=== PATIENT | female | born 1980 | race Hispanic/Latino ===

== ENCOUNTER 2018-08-04 06:41 | Outpatient (CLI) | payer BC ==
--- NOTE | 2018-08-04 08:33 | ULT ---
ULTRASOUND ABDOMEN COMPLETE HISTORY: Epigastric pain. TECHNIQUE: Payne-scale ultrasound evaluation of the liver, gallbladder, spleen, pancreas, common bile duct, kidne ys, abdominal aorta, and inferior vena cava (IVC). FINDINGS: No focal hepatic lesion or acute gallbladder pathology. The imaged spleen and kidneys are unremarkab le. Lo's sign is reported as negative. No ascites. The retroperitoneal structures, including t he aorta and pancreas, are suboptimally visualized. IMPRESSION: No definite acute process. POS: [facility]
== END 2018-08-04 06:42 | disposition home or self-care (01) ==
LOC: BICULT 06:41
PROVIDERS: ATTEND Family Medicine
DX: R10.13 Epigastric pain (principal); K21.9 Gastro-esophageal reflux disease without esophagitis
CPT/HCPCS: 76700